=== PATIENT | male | born 1955 | race Caucasian/White ===

== ENCOUNTER 2021-12-15 17:34 | Emergency (ER) | payer MEDICARE ==
[~2021-12-15 17:34] MED LIST: ATENOLOL50 MG PO; ATORVASTATIN CA40 MG PO; BRILINTA90 MG PO; CLOPIDOGREL75 MG PO; ISMO20 MG PO; LASIX40 MG PO; LEVOTHYROXINE88 MCG PO; METOPROLOL SUC100 MG PO; PANTOPRAZOLE SO40 MG PO; XARELTO20 MG PO
[2021-12-15] MEDS ORDERED: FLEXERIL5 MG PO (21:17)
== END 2021-12-15 21:25 | disposition home or self-care (01) ==
LOC: FER 17:34
DX: M54.50 Low back pain, unspecified (principal); I25.10 Atherosclerotic heart disease of native coronary artery without angina pectoris; I10 Essential (primary) hypertension; V49.60XA Unspecified car occupant injured in collision with unspecified motor vehicles in traffic accident, initial encounter
CPT/HCPCS: 70450; 72131